=== PATIENT | female | born 1965 | race Caucasian/White ===

== ENCOUNTER 2020-04-04 08:50 | Outpatient (CLI) | payer OTHER, SELFPAY ==
--- NOTE | ~2020-04-04 | MM_ITS ---
EXAMINATION: MM screening johnnie BI w angel HISTORY: Screening mammogram TECHNIQUE: Craniocaudal and mediolateral oblique 3-D tomosynthesis images were obtained and synthetic 2-D images were generated. CAD analysis was submitted and interpreted. COMPARISON: No prior mammogram is available for comparison at this institution. BREAST PARENCHYMAL COMPOSITION: There are scattered areas of fibroglandular density. FINDINGS: There is no evidence of suspicious mass, calcification, or architectural distortion to sugg est malignancy in either breast. There has been no suspicious interval change. IMPRESSION: 1. No mammographic evidence of malignancy. 2. Recommend routine screening mammography in one year. BI-RADS Category 1: Negative Reviewed, dictated and finalized at location A.
--- NOTE | ~2020-04-04 | DEXA_ITS ---
Bone Density Report Name: Demi Pat Age: 54 Sex: Female Ethnicity: White Date of : 1965 Indication: postmenopausal; height loss; Referring Provider: Raine Causey Study: Bone densitometry was performed. Exam Date: April 04, 2020 Accession number: [id number] Bone Density: Region BMD T-score Z-score Classification AP Spine (L1-L4) 1.018 -0.3 0.7 Normal Femoral Neck (Left) 0.713 -1.2 -0.3 Osteopenia Total Hip (Left) 1.014 0.6 1.2 Normal Total Hip Bilateral Avg 1.061 1.0 1.6 Normal Femoral Neck (Right) 0.764 -0.8 0.2 Normal Total Hip (Right) 1.107 1.4 2.0 Normal World Health Organization criteria for BMD impression classify patients as: Normal (T-score at or above -1.0), Osteopenia (T-score between -1.0 and -2.5), or Osteoporosis (T-score at or below -2.5). 10-year Fracture Risk(1): Major Osteoporotic Fracture 5.1% Hip Fracture 0.3% Reported Risk Factors: [place] (), Neck BMD=0.713, BMI=36.9 (1) FRAX(R) Version 3.08. Fracture probability calculated for an untreated patient. Fracture probability may be lower if the patient has received treatment. Clinical Information Provided by Patient: Has used the following medications: Vitamin D Patient maximum height was 70 Menopause Age: 54 No regular weight bearing exercise Drinks caffeinated beverages Onset of menses at age 14 Number of children 3 Impression: The patient has low bone mass, based on the Left Femoral Neck T-score. The patient has an estimated ten-year risk of hip fracture of 0.3% and an estimated ten-year risk of major fracture of 5.1%, based on the WHO FRAX algorithm. Discussion: BONE DENSITY IS LOW AT ONE OR MORE SKELETAL SITES. This patient's lowest T-score is low at one or more skeletal sites. It meets the World Health Organization's (WHO) criteria for ?low bone mass? (T-score between -1.0 and -2.5). The patient's 10-year risk of fracture as calculated by FRAX is less than the threshold where pharmacological therapy is recommended by the National Osteoporosis Foundation (NOF). However, all treatment decisions require clinical judgment and consideration of individual patient factors, including patient preferences, comorbidities, previous drug use, risk factors not captured in the FRAX model (e.g., frailty, falls, vitamin D deficiency, increased bone turnover, interval significant decline in bone density) and possible under or overestimation of fracture risk by FRAX. The patient should follow a healthful lifestyle (good nutrition with adequate calcium and vitamin D, and appropriate weight-bearing exercise). Follow-Up: Consider repeating this study in 2 to 3 years to reassess this patient's status, or sooner if there is some new clinical indication. Reported by: JULIO on 04/04/2020 9:28:00 AM.
== END 2020-04-04 08:51 | disposition home or self-care (01) ==
LOC: ANHIMG 08:52
PROVIDERS: PCP Family Medicine; Visit Provider Family Medicine
DX: Z12.31 Encounter for screening mammogram for malignant neoplasm of breast (principal); Z78.0 Asymptomatic menopausal state; M85.88 Other specified disorders of bone density and structure, other site
CPT/HCPCS: 77063; 77067; 77080

== ENCOUNTER 2020-12-20 17:11 | Emergency (ER) | payer BC, SELFPAY ==
[2020-12-20] VITALS (25 sets, daily range): BP systolic 124–182; BP diastolic 98–110; PULSE 72–91; RESP 17–30; TEMP 36.6; O2SAT 94–100
--- NOTE | ~2020-12-20 | XR_ITS ---
EXAMINATION: XR chest 2V 12/20/2020 17:50 INDICATION: Chest tightness. Arm pain and dizziness. PROCEDURE: 2 view chest COMPARISON: No prior studies for comparison. FINDINGS: The lungs are clear. The cardiomediastinal silhouette is within normal limits. There are no pleural effusions. There is no pneumothorax suspected. There is a calcified granuloma in the lef t mid thorax. IMPRESSION: 1: NO ACUTE CARDIOPULMONARY DISEASE. Reviewed, dictated and finalized at location A. [employer]
--- NOTE | 2020-12-20 17:16 | ECG_ITS ---
Measurements Intervals [place] Rate: 73 P: 11 AL: 170 QRS: -5 QRSD: 97 T: 14 QT: 387 QTc: 427 Interpretive Statements SINUS RHYTHM DELAYED PRECORDIAL R/S TRANSITION LOW QRS VOLTAGE IN PRECORDIAL LEADS BASELINE ARTIFACT- I, II, III, AVR, AVL BORDERLINE ECG Electronically Signed On 12-21-2020 7:07:32 ADJUSTER by Bernard Gee D.O.
[2020-12-20 17:28] LABS: Basophils Percent Auto 0.3 % (0.2-1.2); Eosinophils Absolute Auto 0.2 K/mm3 (0-0.3); Eosinophils Percent Auto 2.2 % (0-4.4); Hematocrit 45.3 % (37.0-47.0); Hemoglobin 15.3 g/dL (12.0-15.0); Immature Granulocyte Absolute 0.02 K/mm3 (0.00-0.031); Immature Granulocyte Percent A 0.2 % (0-0.5); Lymphocytes Absolute Auto 2.51 K/mm3 (0.9-3.2); Lymphocytes Percent Auto 27.6 % (18.3-44.2); Mean Corpuscular HGB Conc 33.8 g/dl (32-36); Mean Corpuscular Hemoglobin 29.3 pg (26-34); Mean Corpuscular Volume 86.6 fl (80-100); Mean Platelet Volume 9.3 fl (7.4-10.4); Monocytes Absolute Auto 0.7 K/mm3 (0.1-0.6); Monocytes Percent Auto 7.3 % (2.6-8.5); Neutrophils Absolute Auto 5.7 K/mm3 (1.3-6.7); Neutrophils Percent Auto 62.4 % (45.5-73.1); Platelet Count Result 329 k/mm3 (150-375); Red Blood Count 5.23 M/mm3 (4.2-5.4); Red Cell Distribution Width 13.6 % (11.5-14.5); White Blood Count 9.1 K/mm3 (4.5-10.0)
[2020-12-20 17:39] LABS: Anion Gap 8 mmol/L (8-16); Blood Urea Nitrogen 13 mg/dL (7-17); Calcium 9.4 mg/dL (8.4-10.2); Carbon Dioxide 26 mmol/L (22-30); Chloride 105 mmol/L (98-107); Estimated CRCL calculation 117 ml/min; Estimated Glomerular Filt Rate > 60; Glucose 106 mg/dL (65-105); Potassium 4.3 mmol/L (3.4-5.0); Sodium 139 mmol/L (137-145)
[2020-12-20 17:42] LABS: INR 0.9
[2020-12-20 17:43] LABS: Partial Thromboplastin Time 28.4 SECONDS (22.3-36.8)
[2020-12-20 17:51] LABS: Troponin I < 0.012 ng/mL (0.000-0.034)
--- NOTE | 2020-12-20 18:15 | ED.RECABL ---
HPI - Recheck/Abnormal Lab/Rx General Chief Complaint: Recheck/Abnormal Lab/Rx Stated Complaint: sent from urgent care/elevated BP Time Seen by Provider: 12/20/20 17:36 Source: patient Mode of arrival: ambulatory Limitations: no limitations History of Present Illness HPI narrative: This is a 55 year old female that presents to the ER for high blood pressure. Reports her blood pressure has been running in the 150s-160s systolic over the last couple of days. Also reports chest heaviness since yesterday. Reports feeling lightheaded. Denies fever, cough, shortness of breath, or lower extremity edema. Related Data Allergies Allergy/AdvReac Type Severity Reaction Status Date / Time No Known Allergies Allergy Verified 12/20/20 18:34 Review of Systems Review of Systems: Narrative: CONSTITUTIONAL: Denies fever CARDIOVASCULAR: Reports chest pain. Denies edema. RESPIRATORY: Denies cough or dyspnea. All systems reviewed & are unremarkable except as noted in HPI and below PMFSH Past Medical History Medical History (Updated 12/20/20 @ 21:01 by Aditi Chang PA-C) HLD (hyperlipidemia) Normal colonoscopy (~2017) Surgical History Surgical History History of surgical removal of meniscus of knee Status post cervical spinal fusion Family History Family History Father Hypertension Heart disease age 51 Sibling Heart disease age 61 Sibling Breast cancer Social History Social History Smoking status: Never smoker Exam Narrative: Exam Narrative: GENERAL: Well-appearing, obese, and in no acute distress. HEAD: Normocephalic, atraumatic. EYES: EOMI. ENT: Mucous membranes moist. Oropharynx without tonsillar hypertrophy exudate or other lesions. NECK: Supple. No adenopathy or masses. No carotid bruits or JVD CHEST: Clear to auscultation. No respiratory distress. No wheezes rales or rhonchi HEART: Regular rate and rhythm. No murmur heard. Normal peripheral pulses. EXTREMITIES: Normal range of motion. No edema. SKIN: Warm, dry, no rash. NEURO: No focal deficits. Alert and oriented x3. PSYCH: Normal mood and affect Course Consultations Consultation #1: Spoke with Dr. Montejo about patient and workup. Recommends starting metoprolol and follow-up in clinic Date: 12/20/20 Time: 20:58 Vital Signs Vital signs: Vital Signs Temperature 97.9 F 12/20/20 17:12 Pulse Rate 86 12/20/20 17:12 Respiratory Rate 18 12/20/20 17:12 Blood Pressure 182/100 H 12/20/20 17:12 Pulse Oximetry 100 12/20/20 17:12 Temperature 97.9 F 12/20/20 17:12 Pulse Rate 79 12/20/20 21:01 Respiratory Rate 22 H 12/20/20 21:01 Blood Pressure 139/98 H 12/20/20 21:01 Pulse Oximetry 96 12/20/20 21:01 MDM - Recheck/Abnormal Lab/Rx MDM Narrative Medical decision making narrative: Patient presents to the emergency department for elevated blood pressure. Was also reporting some chest tightness. Blood pressure elevated to 182/100 on arrival, this down trended on its own. Most recent blood pressure in the 130s over 90s. CBC and metabolic panel without concerning findings. EKG is without concerning changes and baseline and 3-hour troponin are negative chest x-ray is without acute cardiopulmonary disease. Patient did report some relief of her chest discomfort with Toradol. Heart score is a 3. Spoke with Dr. Montejo about patient and workup. Recommends starting metoprolol and follow-up in clinic. Patient is stable and felt appropriate for further outpatient evaluation. She was given warnings to return to the ER Lab Data Attestation: I reviewed the patient's lab results. Result diagrams: 12/20/20 17:20 12/20/20 17:20 Labs: Lab Results 12/20/20 12/20/20 12/20/20 Range/
--- NOTE | 2020-12-20 18:26 | PC.NURSE ---
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
--- NOTE | 2020-12-20 19:31 | PC.NURSE ---
Report to LATOYA Hadley, to continue care.
[2020-12-20] MEDS: KETOROLAC 15 MG/ML VIAL (*BKC) IV PUSH (20:14)
[2020-12-20 20:26] LABS: Troponin I < 0.012 ng/mL (0.000-0.034)
== END 2020-12-20 21:58 | disposition home or self-care (01) ==
PROVIDERS: Emergency Provider Emergency Medicine; PCP Family Medicine
DX: I10 Essential (primary) hypertension (principal); R07.9 Chest pain, unspecified; E78.5 Hyperlipidemia, unspecified; Z98.1 Arthrodesis status
CPT/HCPCS: 36415; 71046; 80048; 84484; 85025; 85610; 85730; 93005; 96374; 99284; J1885

== ENCOUNTER 2022-08-19 16:17 | Outpatient (CLI) | payer BC, SELFPAY ==
--- NOTE | ~2022-08-19 | MM_ITS ---
EXAMINATION: MM screening johnnie BI w angel HISTORY: Screening mammogram, family history of breast cancer in her sister. TECHNIQUE: Craniocaudal and mediolateral oblique 3-D tomosynthesis images were obtained and synthetic 2-D images were generated. CAD analysis was submitted and interpreted. COMPARISON: 04/04/2020 BREAST PARENCHYMAL COMPOSITION: The breasts are almost entirely fatty. FINDINGS: A stable focal asymmetry is present in the posterior third of the upper-outer quadrant of t he left breast. No suspicious mass, calcification, or architectural distortion are identified in eith er breast to suggest malignancy. There has been no suspicious interval change. IMPRESSION: 1. No mammographic evidence of malignancy. 2. Recommend routine screening mammography in one year. BI-RADS Category 2: Benign finding(s). Reviewed, dictated and finalized at location A.
== END 2022-08-19 16:18 | disposition home or self-care (01) ==
PROVIDERS: PCP Family Medicine; Visit Provider Physician Assistant
DX: Z12.31 Encounter for screening mammogram for malignant neoplasm of breast (principal)
CPT/HCPCS: 77063; 77067

== ENCOUNTER 2024-07-31 08:02 | Outpatient (CLI) | payer BC, SELFPAY ==
--- NOTE | ~2024-07-31 | CT_ITS ---
EXAMINATION: CT abdomen pelvis w con DATE: 07/31/2024 08:38 INDICATION: Ventral hernia with obstruction TECHNIQUE: Computed tomography (CT) of the abdomen and pelvis was performed with 100 mL Omnipaque-350 intravenous contrast. Automated exposure control and iterative reconstruction technique were employe d. The dose-length product was 1566.55 mGy-cm. COMPARISON: None FINDINGS: Lung bases are clear. Heart size is normal. No pericardial or pleural effusion. There are multiple he patic and splenic calcifications consistent with old granulomatous disease. There is diffuse hepatic steatosis. Gallbladder, pancreas, bilateral adrenal glands and kidneys are normal. 11.4 x 10.4 x 5.9 cm fat-containing midline infraumbilical ventral hernia extending through a 2.4 cm diameter orifice. No evident herniation of the bowels which are normal with no obstruction. Normal appendix. Bladder, a nteverted uterus and bilateral adnexa are unremarkable. No free intraperitoneal gas or fluid. No path ologically enlarged abdominal or pelvic lymphadenopathy. 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 There is also 6 mm retrolisthesis L4 on L5. IMPRESSION: 1. Moderate-sized fat-containing infraumbilical ventral hernia. No bowel obstruction or other acute i ntra-abdominal/pelvic process. 2. Diffuse hepatic steatosis. Reviewed, dictated and finalized at location B. IMPRESSION: 1. Moderate-sized fat-containing infraumbilical ventral hernia. No bowel obstru ction or other acute intra-abdominal/pelvic process. 2. Diffuse hepatic steatosis.
[2024-07-31 08:32] LABS: Estimated Glomerular Filt Rate > 60
== END 2024-07-31 08:03 | disposition home or self-care (01) ==
LOC: ANHIMG 08:08
PROVIDERS: PCP Family Medicine; Visit Provider Surgery
DX: K43.9 Ventral hernia without obstruction or gangrene (principal)
CPT/HCPCS: 74177; Q9967